=== PATIENT | male | born 1985 | race Caucasian/White ===

== ENCOUNTER 2023-02-13 18:18 | Emergency (ER) | payer OTHER, SELFPAY ==
[2023-02-13] VITALS (20 sets, daily range): BP systolic 102–140; BP diastolic 61–94; PULSE 65–137; RESP 11–20; TEMP 37.1; O2SAT 93–99; BMI 26.2
--- NOTE | 2023-02-13 18:30 | ED.GENADULT ---
HPI - General Adult General Chief complaint: Arrhythmia/Palpitations Stated complaint: A flutter Time Seen by Provider: 02/13/23 18:24 Source: patient Mode of arrival: EMS Limitations: no limitations History of Present Illness HPI narrative: 37-year-old male. Has had history of atrial flutter in the past. Also has a history of high blood pressure and [id number] diabetes. Is on metoprolol. Has been taking his metoprolol. Is scheduled for an ablation in the next few weeks. Is here visiting the local area. Had a fairly sudden onset of palpitations. No chest discomfort or lightheadedness. He did take an extra dose of his metoprolol without any improvement. Also received diltiazem by EMS prior to arrival without any improvement of symptoms. Related Data Home Medications Medication Instructions Recorded Confirmed buspirone 10 mg tablet 10 mg PO DAILY 02/13/23 02/13/23 escitalopram oxalate 20 mg tablet 20 mg PO DAILY 02/13/23 02/13/23 fenofibrate nanocrystallized 145 145 mg PO DAILY 02/13/23 02/13/23 mg tablet lisinopril 5 mg tablet 5 mg PO DAILY 02/13/23 02/13/23 metformin 1,000 mg tablet 1,000 mg PO BID 02/13/23 02/13/23 Allergies Allergy/AdvReac Type Severity Reaction Status Date / Time Ge[place]-HAW-[id number] Reductase Allergy Verified 02/13/23 18:26 Inhibitor Review of Systems Constitutional Constitutional: Reports system reviewed and no additional complaints, except as documented Cardiovascular Cardiovascular: Reports system reviewed and no additional complaints, except as documented Respiratory Respiratory: Reports system reviewed and no additional complaints, except as documented Gastrointestinal Gastrointestinal: Reports system reviewed and no additional complaints, except as documented Integumentary/Breasts Skin/Breast: Reports system reviewed and no additional complaints, except as documented Hematologic/Lymphatic On Anticoagulants: No Patient History Social History Smoking Status: Never smoker Exam Initial Vital Signs Initial Vital Signs: Vital Signs Pulse Rate 135 H 02/13/23 18:25 Respiratory Rate 12 02/13/23 18:25 HENMT Head: normal to inspection and normocephalic Resp Effort & Inspection: normal respiratory effort Auscultation: clear to auscultation bilaterally Cardio Rate: regular rate Rhythm: regular rhythm Extrem General: No edema Procedures Cardioversion Consent Signed: Yes Indication: Atrial flutter Stability: Stable Number of attempts (shocks): 1 Joules used: 120 Cardiac rhythm post-cardioversion: Sinus rhythm Procedural Sedation Consent signed: Yes Time out performed: Yes Indication: cardioversion ASA Class: II Mallampati Airway Classification: Class II Preparation: media monitor applied, pulse oximeter, capnometry used, supplemental O2 applied, suction/airway equipment at bedside and IV secured Fentanyl: IV Fentanyl dose (mcg): 12 IV Propofol dose (mg): 150 Intraservice time/total sedation time (min): 15 ED Sedation Level: Moderate (Concious) Patient Tolerated Procedure: Well Complications: none Course Orders Ordered: ED Orders 02/13/23 18:25 Complete Blood Count AUTO DIFF Stat Comprehensive Metabolic Panel Stat Lipase Stat Magnesium Stat 02/13/23 18:31 RT Consult Eval and Treat Now 02/13/23 18:32 EKG-12 Lead Stat 02/13/23 19:01 EKG-12 Lead Stat Discontinued Medications Fentanyl (Fentanyl 100 Mcg/2 Ml Inj) 12.5 mcg IV NOW ONE Stop: 02/13/23 18:31 Last Admin: 02/13/23 18:50 Dose: 12.5 mcg Documented By: RB Sodium Chloride (Normal Saline 0.9%) 1,000 mls @ 125 mls/hr IV CONT ROMERO Last Infusion: 02/13/23 19:10 Dose: 0 mls/hr Documented By: Admin: 02/13/23 18:46 Dose: 125 mls/hr Documented By: RB Propofol (Propofol 200 Mg/20 Ml Vial) 100 mg IV NOW ONE Stop: 02/13/23 18:31 Last Admin: 02/13/23 18:50 Dose: 100 mg Documented By: RB Propofol (Propofol 200 Mg/20 Ml Vial) 50 mg IV NOW ONE Stop: 02/13/23 18:58 Last Admin: 02/13/23 18:55 Dose: 50 mg Documented By: RB Vital Signs Vital signs: Vital Signs - 8 hr 02/13/23 18:25 02/13/23 18:26 02/13/23 18:26 Temperature 98.7 F Pulse Rate 135 H 135 H 135 H Respiratory Rate 12 20 11 L Blood Pressure 134/84 Pulse Oximetry 98 98 Oxygen Delivery Method Room Air Oxygen Flow Rate 02/13/23 18:26 02/13/23 18:30 02/13/23 18:30 Temperature Pulse Rate 135 H Respiratory Rate 18 Blood Pressure 134/84 140/91 H Pulse Oximetry 97 Oxygen Delivery Method Oxygen Flow Rate 02/13/23 18:35 02/13/23 18:40 02/13/23 18:45 Temperature Pulse Rate 136 H 137 H 137 H Respiratory Rate 14 14 Blood Pressure Pulse Oximetry 96 95 94 Oxygen Delivery Method Oxygen Flow Rate 02/13/23 18:45 02/13/23 18:50 02/13/23 18:50 Temperature Pulse Rate 136 H Respiratory Rate 15 Blood Pressure 140/85 135/94 H Pulse Oximetry 96 Oxygen Delivery Method Oxygen Flow Rate 02/13/23 18:55 02/13/23 18:55 02/13/23 18:58 Temperature Pulse Rate 137 H 69 Respiratory Rate 12 14 Blood Pressure 102/69 Pulse Oximetry 93 93 Oxygen Delivery Method Nasal Cannula Oxygen Flow Rate 3 02/13/23 18:58 02/13/23 19:00 02/13/23 19:00 Temperature Pulse Rate 68 Respiratory Rate 15 Blood Pressure 119/64 114/61 Pulse Oximetry 95 Oxygen Delivery Method Room Air Oxygen Flow Rate 02/13/23 19:05 02/13/23 19:05 02/13/23 19:10 Temperature Pulse Rate 68 67 Respiratory Rate 15 17 Blood Pressure 117/72 Pulse Oximetry 93 94 Oxygen Delivery Method Room Air Oxygen Flow Rate 02/13/23 19:10 02/13/23 19:15 02/13/23 19:15 Temperature Pulse Rate 68 66 Respiratory Rate 16 16 Blood Pressure 117/74 121/75 Pulse Oximetry 95 95 Oxygen Delivery Method Room Air Oxygen Flow Rate 02/13/23 19:16 02/13/23 19:20 02/13/23 19:20 Temperature Pulse Rate 133 H 65 67 Respiratory Rate 16 16 20 Blood Pressure 117/76 Pulse Oximetry 95 95 Oxygen Delivery Method Oxygen Flow Rate 02/13/23 19:20 02/13/23 19:25 02/13/23 19:25 Temperature Pulse Rate 68 Respiratory Rate 15 Blood Pressure 117/76 122/67 Pulse Oximetry 96 Oxygen Delivery Method Oxygen Flow Rate 02/13/23 19:30 02/13/23 19:30 02/13/23 19:30 Temperature Pulse Rate 66 66 Respiratory Rate 16 16 Blood Pressure 124/73 124/73 Pulse Oximetry 96 96 Oxygen Delivery Method Oxygen Flow Rate 02/13/23 19:35 02/13/23 19:36 02/13/23 19:36 Temperature Pulse Rate 69 67 Respiratory Rate 15 13 Blood Pressure 126/77 Pulse Oximetry 99 99 Oxygen Delivery Method Oxygen Flow Rate 02/13/23 19:40 02/13/23 19:40 Temperature Pulse Rate 66 Respiratory Rate 15 Blood Pressure 124/74 Pulse Oximetry 98 Oxygen Delivery Method Oxygen Flow Rate Medical Decision Making Lab Data Lab results reviewed: Yes I reviewed the patient's lab results. 02/13/23 18:25 02/13/23 18:25 Labs: Lab Results 02/13/23 Range/Units 18:25 WBC 6.7 (4.5-11.0) X10^3/uL RBC 5.15 (4.5-5.9) X10^6/uL Hgb 15.1 (13.5-17.5) g/dL Hct 43.7 (41-53) % MCV 85.0 (80-100) fL MCH 29.3 (26-34) PG MCHC 34.5 (30-36) % RDW 12.3 (11.6-14.8) % Plt Count 257 (150-400) X10^3/uL Neut % (Auto) 48.2 L (50-75) % Lymph % (Auto) 37.8 (25-40) % [place] % (Auto) 8.6 (3-14) % Eos % (Auto) 4.4 H (2-4) % Baso % (Auto) 1.0 (0-2) % Neut # (Auto) 3200 (9544-7170) /uL Lymph # (Auto) 2500 (1291-4287) /uL [place] # (Auto) 600 (0-900) /uL Eos # (Auto) 300 (0-450) /uL Baso # (Auto) 100 (0-100) /uL Sodium 136 L (137-145) mmol/L Potassium 4.2 (3.4-5.1) mmol/L Chloride 103 (98-107) mmol/L Carbon Dioxide 25 (22-32) mmol/L BUN 21 H (9-20) mg/dL Creatinine 0.75 (0.66-1.25) mg/dL Estimated GFR > 60 (>60) mL/min BUN/Creatinine Ratio 28.0 H (6-22) Glucose 115 H (70-100) mg/dL Calcium 9.9 (8.4-10.2) mg/dL Magnesium 1.7 (1.6-2.3) mg/dL Total Bilirubin 0.7 (0.2-1.3) mg/dL AST 54 (17-59) IU/L ALT 79 H (<50) IU/L Alkaline Phosphatase 63 (38-126) U/L Total Protein 8.3 H (6.3-8.2) g/dL Albumin 4.9 (3.5-5.0) g/dL Globulin 3.4 (1.7-4.1) g/dL Albumin/Globulin Ratio 1.4 (1.0-2.8) Lipase 286 (23-300) U/L ECG Data Attestation: I personally reviewed and interpreted this ECG as follows: Interpretation: Presentation EKG Atrial flutter Ventricular rate 136 Normal axis Normal QRS Nonspecific ST T wave changes Post cardioversion EKG Sinus rhythm Ventricular rate is 69 Normal QRS Normal QTC No ST T wave changes MDM Narrative Medical decision making narrative: Patient has a history of atrial flutter. He arrived in a [facility]. He has been cardioverted successfully in the past. He was successfully cardioverted here in the ER. He tolerated the procedure well. He is scheduled for an ablation in the next couple weeks. Will have him continue all of his medications. Have him contact his electric refrigerator preparer for follow-up. He was given return precautions. He expressed understanding and agreement. Discharge Plan Departure Patient Disposition: Home Clinical Impression: Atrial flutter Instructions: DI for Atrial Flutter Activity Restrictions/Additional Instructions: Recommend that you continue to take all of your medications as directed. I recommend you contact your electric refrigerator preparer for follow-up and you return home. Return to the emergency department for new or worsening symptoms. Prescriptions: No Action metformin 1,000 mg tablet 1,000 mg PO BID buspirone 10 mg tablet 10 mg PO DAILY lisinopril 5 mg tablet 5 mg PO DAILY escitalopram oxalate 20 mg tablet 20 mg PO DAILY fenofibrate nanocrystallized 145 mg tablet 145 mg PO DAILY Referrals: Dayami Graf MD [Primary Care Provider] - Stand Alone Forms: Patient Portal/API
[2023-02-13 18:36] LABS: Add Manual Diff / Slide Review NO; Basophils Absolute Auto 100 /uL (0-100); Eosinophils Absolute Auto 300 /uL (0-450); Eosinophils Percent Auto 4.4 % (2-4); Hematocrit 43.7 % (41-53); Hemoglobin 15.1 g/dL (13.5-17.5); Lymphocytes Absolute Auto 2500 /uL (1100-4500); Lymphocytes Percent Auto 37.8 % (25-40); Mean Corpuscular HGB Conc 34.5 % (30-36); Mean Corpuscular Hemoglobin 29.3 PG (26-34); Monocytes Absolute Auto 600 /uL (0-900); Monocytes Percent Auto 8.6 % (3-14); Neutrophils Absolute Auto 3200 /uL (1500-7000); Neutrophils Percent Auto 48.2 % (50-75); Platelet Count 257 X10^3/uL (150-400); Red Blood Cell Count 5.15 X10^6/uL (4.5-5.9); Red Cell Distribution Width 12.3 % (11.6-14.8); White Blood Cell Count 6.7 X10^3/uL (4.5-11.0)
[2023-02-13] MEDS: SODIUM CHLORIDE 0.9% 1,000 ML 125 ML IV (18:46)
[2023-02-13] MEDS: propofoL 200 MG/20 ML VIAL 100 MG IV (18:50)
[2023-02-13] MEDS: fentaNYL 100 MCG/2 ML INJ 12.5 MCG IV (18:50)
[2023-02-13 18:52] LABS: Albumin 4.9 g/dL (3.5-5.0); Albumin Globulin Ratio 1.4 (1.0-2.8); Alkaline Phosphatase 63 U/L (38-126); Bilirubin Total 0.7 mg/dL (0.2-1.3); Blood Urea Nitrogen 21 mg/dL (9-20); Calcium 9.9 mg/dL (8.4-10.2); Carbon Dioxide 25 mmol/L (22-32); Chloride 103 mmol/L (98-107); Estimated Glomerular Filt Rate > 60 mL/min (>60); Globulin 3.4 g/dL (1.7-4.1); Glucose 115 mg/dL (70-100); Lipase 286 U/L (23-300); Magnesium 1.7 mg/dL (1.6-2.3); Sodium 136 mmol/L (137-145); Total Protein 8.3 g/dL (6.3-8.2)
[2023-02-13 18:54] LABS: Alanine Aminotransferase 79 IU/L (<50); Aspartate Aminotransferase 54 IU/L (17-59); HEMOLYSIS 58 (0-50); Potassium 4.2 mmol/L (3.4-5.1)
[2023-02-13] MEDS: propofoL 200 MG/20 ML VIAL 50 MG IV (18:55)
== END 2023-02-13 19:56 | disposition home or self-care (01) ==
PROVIDERS: Emergency Provider Emergency Medicine; PCP Internal Medicine
DX: I48.92 Unspecified atrial flutter (principal); E11.9 Type 2 diabetes mellitus without complications; I10 Essential (primary) hypertension; Z79.84 Long term (current) use of oral hypoglycemic drugs
CPT/HCPCS: 80053; 83690; 83735; 85025; 92960; 93005; 93010; 99285; J2704; J3010